=== PATIENT | female | born 1975 | race Caucasian/White ===

== ENCOUNTER 2022-07-13 09:17 | Emergency (ER) | payer OTHER ==
[~2022-07-13] VITALS: Ht 172.7 cm; Wt 97.7 kg
[~2022-07-13 09:17] MED LIST: IBUPROFEN
[2022-07-13 09:30] VITALS: BP 130/74
[2022-07-13] MEDS ORDERED: IBUPROFEN 600 MG TABLET PO ONE (10:30)
[2022-07-13] MEDS ORDERED: IBUP-1554 PO (10:47)
== END 2022-07-13 11:01 | disposition home or self-care (01) ==
LOC: EMS 09:26
DX: G56.01 Carpal tunnel syndrome, right upper limb (principal); Z98.890 Other specified postprocedural states
CPT/HCPCS: 82962; 99283